=== PATIENT | female | born 1995 | race Caucasian/White ===

== ENCOUNTER 2018-05-17 00:56 | Emergency (ER) | payer MEDICAID ==
[~2018-05-17] VITALS: Ht 172.7 cm; Wt 84.8 kg
[2018-05-17] MEDS ORDERED: FENO145T37 PO (02:20)
[2018-05-17] MEDS ORDERED: METF-440 PO (02:20)
[2018-05-17] MEDS ORDERED: SPIR50TA5 PO (02:20)
[2018-05-17] MEDS ORDERED: LEVO1TAB20 PO (02:20)
[2018-05-17] MEDS ORDERED: LEVO50TA8 PO (02:20)
[2018-05-17] MEDS ORDERED: ONDANSETRON ODT 4 MG TAB.RAPDIS SL ONE (02:30)
[2018-05-17] MEDS ORDERED: CEPHALEXIN MONOHYDRATE 500 MG CAPSULE PO ONE (02:30)
[2018-05-17] MEDS ORDERED: DEXAMETHASONE 0.5 MG/5 ML LIQ UDC PO ONE ×2 (02:30→02:45)
[2018-05-17] MEDS ORDERED: ONDANSETRON ODT 4 MG TAB.RAPDIS ONE (02:31)
[2018-05-17] MEDS ORDERED: CEPHALEXIN MONOHYDRATE 500 MG CAPSULE ONE (02:32)
[2018-05-17] MEDS ORDERED: DEXAMETHASONE 4 MG TABLET ONE (02:32)
[2018-05-17] MEDS ORDERED: DEXAMETHASONE 5 MG/5 ML LIQUID UDC ONE (02:38)
--- NOTE | 2018-05-17 02:50 | NUR ---
Patient discharged to home in stable conditon. Written and verbal after care instructions given. Patient verbalizes understanding of instructions. PT D/C HOME WITH PRESCRIPTION. ALL BELONGINGS W/ PT. PT SELF-AMBULATED WITHOUT DIFFICULTY.
[2018-05-17 02:51] VITALS: BP 122/72
== END 2018-05-17 02:51 | disposition home or self-care (01) ==
LOC: ER 00:58
DX: J03.90 Acute tonsillitis, unspecified (principal); J90 Pleural effusion, not elsewhere classified; Z71.6 Tobacco abuse counseling; E11.9 Type 2 diabetes mellitus without complications; J45.909 Unspecified asthma, uncomplicated; F17.200 Nicotine dependence, unspecified, uncomplicated
CPT/HCPCS: A4663; J8540; Q0162

== ENCOUNTER 2020-01-08 13:51 | Emergency (ER) | payer MEDICAID ==
[~2020-01-08] VITALS: Ht 175.3 cm; Wt 72.6 kg
[~2020-01-08 13:51] MED LIST: FENO145T21 PO; LEVO1TAB20 PO; LEVO50TA8 PO; METF-440 PO; SPIR50TA5 PO
--- NOTE | 2020-01-08 14:24 | NUR ---
Dr. Quiroga at bedside for MSE
[2020-01-08 14:33] LABS: *URINE HCG, QUAL NEGATIVE (NEGATIVE)
[2020-01-08 14:38] LABS: *BILIRUBIN,URIN NEGATIVE (NEGATIVE); *BLOOD, URINE 1+ (NEGATIVE); *CLARITY,URINE SLIGHTLY CLOUDY (CLEAR); *COLOR,URINE YELLOW (YELLOW); *KETONES,URINE NEGATIVE (NEGATIVE); *UROBILINOGEN,URINE 0.2 E.U./dl (NORMAL); LEUKOCYTE ESTERASE ,URINE 2+ (NEGATIVE); NITRITE, URINE NEGATIVE (NEGATIVE); PH,URINE 7.5 (5.0-8.0); UGLUCOSE NEGATIVE (NEGATIVE)
[2020-01-08 14:39] LABS: BACTERIA,URINE FEW /HPF (NONE SEEN); SQUAMOUS EPITHELIAL CELL,UR MANY /HPF (NONE SEEN)
--- NOTE | 2020-01-08 14:50 | NUR ---
Patient eloped from facility. ER physician notified. Patient ambulated with steady gait
== END 2020-01-08 14:24 | disposition left against medical advice (07) ==
LOC: ER 13:55
DX: R10.32 Left lower quadrant pain (principal); E28.2 Polycystic ovarian syndrome; R73.03 Prediabetes; Z79.84 Long term (current) use of oral hypoglycemic drugs; Z84.1 Family history of disorders of kidney and ureter
CPT/HCPCS: 84703; 87086; A4663

== ENCOUNTER 2020-01-08 16:33 | Emergency (ER) | payer MEDICAID ==
[~2020-01-08] VITALS: Ht 175.3 cm; Wt 74.8 kg
--- NOTE | 2020-01-08 16:45 | NUR ---
Dr. Quiroga at bedside for MSE
[2020-01-08 17:00] LABS: BASOPHILS # (AUTO) 0.1 K/uL (0.0-8.0); BASOPHILS % (AUTO) 0.4 % (0.0-2.0); HEMATOCRIT 38.1 % (31.2-41.9); HEMOGLOBIN 13.2 g/dL (10.9-14.3); LYMPHOCYTES # (AUTO) 2.1 K/uL (20.0-40.0); LYMPHOCYTES % (AUTO) 8.1 % (20.5-51.5); MEAN CORPUSCULAR HEMOGLOBIN 28.8 uug (24.7-32.8); MEAN CORPUSCULAR HGB CONC 35 g/dL (32.3-35.6); MEAN CORPUSCULAR VOLUME 82.9 fL (75.5-95.3); MONOCYTES # (AUTO) 1.7 K/uL (2.0-10.0); MONOCYTES % (AUTO) 6.4 % (0.0-11.0); NEUTROPHILS % (AUTO) 85.1 % (38.5-71.5); PLATELET COUNT (AUTO) 288 K/uL (179-408); RED BLOOD CELL COUNT(AUTO) 4.59 MIL/uL (3.63-4.92); WHITE BLOOD COUNT (AUTO) 25.8 K/uL (3.8-11.8)
[2020-01-08] MEDS ORDERED: ONDANSETRON 4 MG/2 ML VIAL IV ONE (17:00)
[2020-01-08] MEDS ORDERED: IV NORMAL SALINE 1000 ML BAG IV ONE (17:00)
[2020-01-08] MEDS ORDERED: KETOROLAC TROMETHAMINE 30 MG INJ IVP ONE (17:00)
[2020-01-08] MEDS ORDERED: ONDANSETRON 4 MG/2 ML VIAL ONE (17:03)
[2020-01-08] MEDS ORDERED: KETOROLAC TROMETHAMINE 30 MG INJ ONE (17:03)
[2020-01-08 17:07] LABS: CREATININE 1.2 mg/dL (0.6-1.3)
[2020-01-08 17:10] LABS: POTASSIUM 2.8 mmol/L (3.5-5.1)
[2020-01-08 17:13] LABS: BILIRUBIN,DIRECT 0.3 mg/dL (0.0-0.2); BILIRUBIN,TOTAL 0.7 mg/dL (0.2-1.0); TOTAL PROTEIN, SERUM 6.8 g/dL (6.4-8.2)
[2020-01-08] MEDS ORDERED: POTASSIUM CHLORIDE 50 ML IV SCH (17:15)
--- NOTE | 2020-01-08 17:20 | NUR ---
US at bedside
[2020-01-08] MEDS ORDERED: POTASSIUM CHLORIDE 50 ML ONE (17:22)
[2020-01-08 17:38] LABS: THYROID STIMULATING HORMONE 0.996 mIU/mL (0.358-3.740)
--- NOTE | 2020-01-08 18:20 | NUR ---
KCL 10meq done infusing at 1820
[2020-01-08] MEDS ORDERED: IV NS 1000 ML 1,000 ML IV ONE (19:00)
--- NOTE | 2020-01-08 19:23 | NUR ---
Patient down for CT at this time. Received report from AM nurse. Assumed care for patient.
--- NOTE | 2020-01-08 20:00 | NUR ---
Pt back in room from Ct, instable condition.
[2020-01-08] MEDS ORDERED: CEFTRIAXONE 1 G in IV DEXTROSE 5% 50 ML IV ONE (20:30)
[2020-01-08] MEDS ORDERED: MAGNESIUM SULFATE/D5W 200 ML ONE (20:57)
[2020-01-08] MEDS ORDERED: CEFTRIAXONE /D5W 50ML IVPB **ER PYXIS IV ONE (20:57)
[2020-01-08] MEDS: MAGNESIUM SULFATE/D5W 100 ML IV SCH ×2 (21:00→21:45)
--- NOTE | 2020-01-08 22:48 | NUR ---
After numerous discussions with Dr. Dumont, patient insists that she still wants to go AMA. Mom is nearby and willing to take her home. Patient received 1 gm of Rocephin, tolerated well no adverse reactions. Magnesium 2 gm also given via IV and finished, no adverse reactions noted. Urine sample obtained, and sent to the lab for UA and culture. MD instructed the patient to come back in two days if she still insists to leave AMA, patient verbalized understanding.
[2020-01-08 22:52] LABS: *BILIRUBIN,URIN NEGATIVE (NEGATIVE); *BLOOD, URINE TRACE (NEGATIVE); *CLARITY,URINE SLIGHTLY CLOUDY (CLEAR); *COLOR,URINE YELLOW (YELLOW); *KETONES,URINE NEGATIVE (NEGATIVE); *UROBILINOGEN,URINE 0.2 E.U./dl (NORMAL); LEUKOCYTE ESTERASE ,URINE 1+ (NEGATIVE); NITRITE, URINE NEGATIVE (NEGATIVE); PH,URINE 5.5 (5.0-8.0); UGLUCOSE NEGATIVE (NEGATIVE)
[2020-01-08 22:57] LABS: BACTERIA,URINE FEW /HPF (NONE SEEN); SQUAMOUS EPITHELIAL CELL,UR FEW /HPF (NONE SEEN); WBC,URINE 0-3 /HPF (0-3)
[2020-01-08] MEDS ORDERED: AZITHROMYCIN 250 MG TABLET ONE (23:29)
[2020-01-08] MEDS ORDERED: AZITHROMYCIN 250 MG TABLET PO ONE (23:30)
--- NOTE | 2020-01-08 23:38 | NUR ---
Pt signed AMA and patient's mom reinforced DC instructions. Prescriptions still provided to patient with MD stressing that patient be back in 48 hours. Pt ambulated with stand by assist to personal car, mom is driving her home. Stable condition.
[2020-01-08 23:41] VITALS: BP 108/54
== END 2020-01-08 23:42 | disposition left against medical advice (07) ==
LOC: ER 16:34
DX: R10.32 Left lower quadrant pain (principal); R11.10 Vomiting, unspecified; D72.829 Elevated white blood cell count, unspecified; E87.6 Hypokalemia; N20.0 Calculus of kidney; K76.0 Fatty (change of) liver, not elsewhere classified; Z87.898 Personal history of other specified conditions; Z91.14 Patient's other noncompliance with medication regimen; J45.909 Unspecified asthma, uncomplicated; Z84.1 Family history of disorders of kidney and ureter
CPT/HCPCS: 36415; 74176; 76770; 76856; 80048; 80076; 81001; 82009; 83605; 84443; 85025; 87086; 96361; 96365; 96366; 96367; 96375; 99285; J0696; J1885; J2405; J3475; J3480; A4663; J7030; Q0144

== ENCOUNTER 2020-01-11 10:44 | Emergency (ER) | payer MEDICAID ==
[~2020-01-11] VITALS: Ht 175.3 cm; Wt 70.3 kg
--- NOTE | 2020-01-11 11:10 | NUR ---
Dr. Blancas at bedside for MSE
[2020-01-11] MEDS ORDERED: HYDROCODONE/APAP 5-325MG TABLET PO ONE (11:30)
[2020-01-11] MEDS ORDERED: HYDROCODONE/APAP 5-325MG TABLET ONE (11:32)
[2020-01-11 11:34] LABS: *BILIRUBIN,URIN NEGATIVE (NEGATIVE); *BLOOD, URINE NEGATIVE (NEGATIVE); *CLARITY,URINE SLIGHTLY CLOUDY (CLEAR); *COLOR,URINE YELLOW (YELLOW); *KETONES,URINE NEGATIVE (NEGATIVE); *UROBILINOGEN,URINE 0.2 E.U./dl (NORMAL); LEUKOCYTE ESTERASE ,URINE 1+ (NEGATIVE); NITRITE, URINE NEGATIVE (NEGATIVE); UGLUCOSE NEGATIVE (NEGATIVE)
[2020-01-11 11:38] LABS: *URINE HCG, QUAL NEGATIVE (NEGATIVE)
[2020-01-11 11:41] LABS: EOSINOPHILS # (AUTO) 0.1 K/uL (0.0-0.7); EOSINOPHILS % (AUTO) 0.6 % (0.0-7.0); LYMPHOCYTES # (AUTO) 1.4 K/uL (20.0-40.0)
[2020-01-11 11:50] LABS: SQUAMOUS EPITHELIAL CELL,UR MANY /HPF (NONE SEEN)
[2020-01-11 11:52] LABS: CREATININE 0.9 mg/dL (0.6-1.3)
[2020-01-11 11:53] LABS: BACTERIA,URINE NONE SEEN /HPF (NONE SEEN); MUCUS,URINE NONE SEEN /LPF (0-FEW); RBC,URINE NONE SEEN /HPF (0-3)
[2020-01-11 11:56] LABS: BASOPHILS % (AUTO) 0.5 % (0.0-2.0); HEMATOCRIT 36.1 % (31.2-41.9); HEMOGLOBIN 12.2 g/dL (10.9-14.3); LYMPHOCYTES % (AUTO) 14.6 % (20.5-51.5); MEAN CORPUSCULAR HEMOGLOBIN 28.2 uug (24.7-32.8); MEAN CORPUSCULAR HGB CONC 34 g/dL (32.3-35.6); MEAN CORPUSCULAR VOLUME 83.8 fL (75.5-95.3); MONOCYTES # (AUTO) 0.9 K/uL (2.0-10.0); MONOCYTES % (AUTO) 9.1 % (0.0-11.0); NEUTROPHILS # (AUTO) 7.1 K/uL (1.8-8.9); NEUTROPHILS % (AUTO) 75.2 % (38.5-71.5); RED BLOOD CELL COUNT(AUTO) 4.31 MIL/uL (3.63-4.92)
[2020-01-11 11:59] LABS: PLATELET COUNT (AUTO) 365 K/uL (179-408); WHITE BLOOD COUNT (AUTO) 9.4 K/uL (3.8-11.8)
--- NOTE | 2020-01-11 12:11 | NUR ---
Patient discharged to home in stable condition. Written and verbal after care instructions given. Patient verbalizes understanding of instructions. Stressed follow up or return to ER for worsening s/s. Patient ambulating with steady gait. NAD noted
--- NOTE | 2020-01-11 12:11 | NUR ---
Patient's mother in ER waiting room to take patient home
[2020-01-11 12:14] VITALS: BP 110/63
== END 2020-01-11 12:11 | disposition home or self-care (01) ==
LOC: ER 10:44
DX: N20.1 Calculus of ureter (principal); R10.32 Left lower quadrant pain; E87.6 Hypokalemia; J45.909 Unspecified asthma, uncomplicated; Z79.84 Long term (current) use of oral hypoglycemic drugs; Z79.899 Other long term (current) drug therapy; Z84.1 Family history of disorders of kidney and ureter; R73.03 Prediabetes
CPT/HCPCS: 36415; 84703; 85025; 87086; A4663